=== PATIENT | male | born 1990 | race Caucasian/White ===

== ENCOUNTER 2018-03-28 22:56 | Emergency (ER) | payer SELFPAY ==
[2018-03-28 23:11] VITALS: BP 142/88; PULSE 68; RESP 20; TEMP 98.4; O2SAT 98
--- NOTE | 2018-03-31 19:28 | C.PDOC ---
Time Seen by Provider: 03/28/18 23:01 Chief Complaint (Nursing): Psychiatric Evaluation Past Medical History Vital Signs: Last Vital Signs Temp 98.4 F 03/28/18 23:01 Pulse 68 03/28/18 23:01 Resp 20 03/28/18 23:01 BP 142/88 03/28/18 23:01 Pulse Ox 98 03/28/18 23:01 - Social History Hx Alcohol Use: No Hx Substance Use: No - Immunization History Hx Tetanus Toxoid Vaccination: No Hx Influenza Vaccination: No Hx Pneumococcal Vaccination: No ED Course And Treatment O2 Sat by Pulse Oximetry: 98 Disposition - Disposition Disposition: LEFT W/O BEING SEEN - ER ONLY
== END 2018-03-28 23:01 | disposition left against medical advice (07) ==
LOC: C.ER 22:56
DX: Z02.89 Encounter for other administrative examinations (principal); Z00.8 Encounter for other general examination